=== PATIENT | female | born 1980 | race Two or more races ===

== ENCOUNTER 2017-07-31 11:27 | Emergency (ER) | payer SELFPAY ==
[2017-07-31 11:45] LABS: URINE HCG POC HCG NEGATIVE (Negative)
[2017-07-31] MEDS: IV NORMAL SALINE 1000ML BAG 1,000 ML IV (12:00)
[2017-07-31] MEDS: diphenhydrAMINE 50 MG/ML VIAL IVP (12:02)
[2017-07-31] MEDS: METOCLOPRAMIDE HCL 10 MG/2 ML VIAL. IV (12:03)
[2017-07-31] MEDS: PROCHLORPERAZINE 10 MG/2 ML VIAL. IV (12:04)
== END 2017-07-31 13:38 | disposition home or self-care (01) ==
LOC: ER 11:27
DX: R51 Headache (principal); I10 Essential (primary) hypertension
CPT/HCPCS: 70450; 81025; 96361; 96374; 96375; 99284-25; J0780; J1200; J2765; J7030

== ENCOUNTER 2018-10-29 14:13 | Emergency (ER) | payer OTHER ==
[~2018-10-29] VITALS: Ht 149.9 cm; Wt 56.7 kg
[~2018-10-29 14:13] MED LIST: DOCU-109 PO; OXYC1TAB7 PO
[2018-10-29 15:30] VITALS: BP 134/71
--- NOTE | 2018-10-29 16:04 | RAD ---
CT HEAD WO CONTRAST History: Fall, hit head on floor Comparison: July 31, 2017 Technique: Noncontrast CT imaging was performed of the head. Exposure: One or more of the following individualized dose reduction techniques were utilized for this examination: 1. Automated exposure control 2. Adjustment of the mA and/or kV according to patient size 3. Use of iterative reconstruction technique. Findings: No acute extra-axial or parenchymal hemorrhage is identified. There is no significant intra-axial mass effect, midline shift, or extra-axial fluid collection. The medina-white differentiation of the major vascular territories is preserved. The ventricles, sulci, and cisterns are within normal limits in size and configuration. The mastoid air cells and the visualized paranasal sinuses are aerated other than likely left maxillary sinus mucous retention cyst about 1.2 cm not fully included. No acute calvarial abnormality is identified. Impression: 1. No acute intracranial abnormality is identified. Electronically signed by: Ministerio Warren MD (10/29/2018 4:01 PM) [facility]
[2018-10-29] MEDS ORDERED: KETOROLAC 60 MG/2 ML VIAL. IM ONE (16:15)
[2018-10-29] MEDS ORDERED: CODE1CAP8 PO (16:35)
--- NOTE | 2018-10-29 16:37 | PHYS DOC ---
Past Medical History Past Medical History: No Pertinent History, Gallstones, Hypertension Past Surgical History: Cholecystectomy, Tubal ligation, Other Additional Past Surgical Histo: leep 03/20/2014 Alcohol Use: Occasionally Drug Use: None Adult General Chief Complaint Chief Complaint: HEADACHE HPI HPI Patient is a 38 year old female who presents with a headache since she hit her head on the floor 4 days ago. The patient was mopping the floor when she slipped causing her feet go out from under her. She landed hitting the back of her head. She has been using ibuprofen and ice packs with little relief. She became worried that she might have a head injury. She denies loss of consciousness or changes in vision. She does have mild photophobia with the headache. She does not have a history of migraine. Review of Systems Review of Systems Constitutional: Denies fever or chills [] Eyes: Denies change in visual acuity, redness, or eye pain [] HENT: Denies nasal congestion or sore throat [] Respiratory: Denies cough or shortness of breath [] Cardiovascular: No additional information not addressed in HPI [] GI: Denies abdominal pain, nausea, vomiting, bloody stools or diarrhea [] : Denies dysuria or hematuria [] Musculoskeletal: Denies back pain or joint pain [] Integument: Denies rash or skin lesions [] Neurologic: See history of present illness Endocrine: Denies polyuria or polydipsia [] All other systems were reviewed and found to be within normal limits, except as documented in this note. Current Medications Current Medications Current Medications Medications (Trade) Dose Ordered [facility] Start Time Stop Time Status Last Admin Dose Admin Ketorolac Tromethamine (Toradol Im) 60 mg 1X ONCE 10/29/18 16:15 10/29/18 16:18 DC 10/29/18 16:27 60 MG Allergies Allergies Allergies Coded Allergies Type Severity Reaction Last Updated Verified No Known Drug Allergies 04/14/16 No Physical Exam Physical Exam Constitutional: Well developed, well nourished, no acute distress, non-toxic appearance. [] HENT: Normocephalic, atraumatic, bilateral external ears normal, oropharynx moist, no oral exudates, nose normal. [] Eyes: PERRLA, EOMI, conjunctiva normal, no discharge. [] Neck: Normal range of motion, no tenderness, supple, no stridor. [] Cardiovascular:Heart rate regular rhythm, no murmur [] Lungs & Thorax: Bilateral breath sounds clear to auscultation [] Abdomen: Bowel sounds normal, soft, no tenderness, no masses, no pulsatile masses. [] Skin: Warm, dry, no erythema, no rash. [] Back: No tenderness, no CVA tenderness. [] Extremities: No tenderness, no cyanosis, no clubbing, ROM intact, no edema. [] Neurologic: Alert and oriented X 3, normal motor function, normal sensory function, no focal deficits noted, cranial nerves II through XII are grossly intact, cerebellar function is intact. [] Psychologic: Affect normal, judgement normal, mood normal. [] Current Patient Data Vital Signs Vital Signs Date Time Temp Pulse Resp B/P (MAP) Pulse Ox O2 Delivery O2 Flow Rate FiO2 10/29/18 15:30 58 18 98 10/29/18 14:35 98.0 142/79 (100) Room Air 98.0 EKG EKG [] Radiology/Procedures Radiology/Procedures []PATIENT: AISHWARYA REAOUNT: [id number]#: [id number] : 1980 LOCATION: ER AGE: 38 SEX: F EXAM STATUS: REG ER ORD. PHYSICIAN: GIUSEPPE PERRY APRN REASON: hit head 4 days ago, continued headache with photophobia, no migraine hx PROCEDURE: CT HEAD WO CONTRAST CT HEAD WO CONTRAST History: Fall, hit head on floor Comparison: July 31, 2017 Technique: Noncontrast CT imaging was performed of the head. Exposure: One or more of the following individualized dose reduction techniques were utilized for this examination: 1. Automated exposure control 2. Adjustment of the mA and/or kV according to patient size 3. Use of iterative reconstruction technique. Findings: No acute extra-axial or parenchymal hemorrhage is identified. There is no significant intra-axial mass effect, midline shift, or extra-axial fluid collection. The medina-white differentiation of the major vascular territories is preserved. The ventricles, sulci, and cisterns are within normal limits in size and configuration. The mastoid air cells and the visualized paranasal sinuses are aerated other than likely left maxillary sinus mucous retention cyst about 1.2 cm not fully included. No acute calvarial abnormality is identified. Impression: 1. No acute intracranial abnormality is identified. Electronically signed by: Monty Sands MD (10/29/2018 4:01 PM) [facility] DICTATED and SIGNED BY: MONTY SANDS MD DATE: 10/29/18 1601 Course & Med Decision Making Course & Med Decision Making Pertinent Labs and Imaging studies reviewed. (See chart for details) [] Dragon Disclaimer Dragon Disclaimer This electronic medical record was generated, in whole or in part, using a voice recognition dictation system. Departure Departure Impression: Primary Impression: Headache Disposition: HOME, SELF-CARE Condition: STABLE Referrals: UNKNOWN PCP NAME (PCP) Patient Instructions: General Headache Without Cause Additional Instructions: Take the medication as directed. Do not drive or operate heavy machinery while taking this medication. Follow-up with your primary care provider for recheck in one week or return to the emergency department if worsening. Scripts Codeine/Butalbital/Asa/Caffein (FIORINAL-COD [id number] CAP) 1 Each Capsule 1 EACH PO BID for headache, #14 CAP Prov: GIUSEPPE PERRY TAX COLLECTOR 10/29/18 GIUSEPPE PERRY APRN Oct 29, 2018 16:37
== END 2018-10-29 16:49 | disposition home or self-care (01) ==
LOC: ER 14:13
DX: R51 Headache (principal); I10 Essential (primary) hypertension; Z90.49 Acquired absence of other specified parts of digestive tract; Z98.51 Tubal ligation status
CPT/HCPCS: 70450; 96372; 99284; J1885

== ENCOUNTER → 2020-04-24 | Outpatient (CLI) | payer OTHER ==
[~2020-04-24] MED LIST changes: +CODE1CAP8 PO
--- NOTE | 2020-04-25 10:06 | RAD ---
BILATERAL SCREENING MAMMOGRAM History: Routine screening. Comparison: None. This exam is the baseline. Technique: Routine bilateral digital mammogram views were obtained. Findings: Breast Tissue Density C : The breasts are heterogeneously dense, which may obscure small masses. Bilateral breast implant contours are normal. There are no dominant masses, suspicious microcalcifications, or architectural distortion. Very small asymmetry involving the right upper breast in the MLO projection 2.5 cm from the nipple is present. IMPRESSION: Small right upper breast asymmetry. Spot compression imaging recommended. Mediolateral view with tomosynthesis recommended. Ultrasound may be needed. BI-RADS Category 0: Incomplete: Need additional imaging evaluation. The images were reviewed with computer aided detection. Patient information is entered into the reminder system with a target due date for the next screening mammogram. Mammography is the most sensitive method for finding small breast cancers, but it does not detect them all and is not a substitute for careful clinical examination. A negative mammogram does not negate a clinically suspicious finding and should not result in delay in biopsying a clinically suspicious abnormality. "Our facility is accredited by the [employer] Mammography [employer]." Electronically signed by: Omero Leblanc MD (04/25/2020 10:03 AM) [facility]
== END | disposition home or self-care (01) ==
LOC: MAMMO 13:23
PROVIDERS: ATTEND Nurse Practitioner Gerontology
DX: Z12.31 Encounter for screening mammogram for malignant neoplasm of breast (principal)
CPT/HCPCS: 77067

== ENCOUNTER → 2020-05-15 | Outpatient (CLI) | payer OTHER ==
--- NOTE | 2020-05-15 13:10 | RAD ---
DATE: 05/15/2020 10:52 AM EXAM: MAMMO ALBERT DIAG RT HISTORY: Screening recall for nodular asymmetry in the superior right breast COMPARISON: 04/24/20 TECHNIQUE: Additional views of the right breast in the ML projection with 2-D and 3-D technique using implant displacement and a spot MLO view of the asymmetry was also obtained. This study was interpreted with the benefit of Computerized Aided Detection (CAD). FINDINGS: Breast Density: HETERO The breast parenchyma Is heterogeneously dense, which could reduce sensitivity of mammography. Breast parenchyma level C Additional views right breast reveal that the asymmetry recalled from screening is persistently associated with a superficial blood vessel in the upper outer quadrant. This implies this represents either a tortuosity in a superficial vein or a small venous varix, both mammographically benign and requiring no additional imaging evaluation or follow up. In the rest of the breast, no suspicious masses, microcalcifications or architectural distortion is present to suggest malignancy. Partially imaged subpectoral breast implant is again noted. The visualized axilla is unremarkable. IMPRESSION: No mammographic evidence of malignancy. BI-RADS CATEGORY: 2 BENIGN FINDING(S) RECOMMENDED FOLLOW-UP: 12M 12 MONTH FOLLOW-UP Annual screening mammography is recommended, unless clinically indicated sooner based on symptoms or change in physical exam. PQRS compliance statement: Patient information was entered into a reminder system with a target due date for the next mammogram. Mammography is a sensitive method for finding small breast cancers, but it does not detect them all and is not a substitute for careful clinical examination. A negative mammogram does not negate a clinically suspicious finding and should not result in delay in biopsying a clinically suspicious abnormality. "Our facility is accredited by the [employer] Mammography [employer]."
== END ==
LOC: MAMMO 10:40
PROVIDERS: ATTEND Nurse Practitioner Gerontology
DX: R92.8 Other abnormal and inconclusive findings on diagnostic imaging of breast (principal)
CPT/HCPCS: 77065; G0279; 77061